=== PATIENT | female | born 1995 | race American Indian/Alaskan Native ===

== ENCOUNTER 2020-03-16 17:03 | Inpatient (IN) | payer OTHER ==
[2020-03-16] MEDS ORDERED: MINERAL OIL 30 ML ORAL LIQD PO PRN (18:18)
[2020-03-16] MEDS ORDERED: PROMETHAZINE 25 MG TAB PO PRN (18:18)
[2020-03-16] MEDS ORDERED: LOPERAMIDE 2 MG CAP PO PRN (18:18)
[2020-03-16] MEDS ORDERED: ONDANSETRON 4 MG/2 ML INJ IV PRN (18:18)
[2020-03-16] MEDS ORDERED: miSOPROStol 200 MCG TAB PR PRN (18:18)
[2020-03-16] MEDS ORDERED: TERBUTALINE 1 MG/1 ML INJ SUB-Q PRN (18:18)
[2020-03-16] MEDS ORDERED: ePHEDrine SULFATE 50 MG/1 ML INJ IV PRN (18:18)
[2020-03-16] MEDS ORDERED: NalbUPHINE 10 MG/1 ML INJ IV PRN (18:18)
[2020-03-16] MEDS ORDERED: CARBOPROST TROMETHAMINE 250 MCG/1 ML INJ IM PRN (18:18)
[2020-03-16] MEDS ORDERED: NALOXONE 0.4 MG/1 ML INJ IV PRN (18:18)
[2020-03-16] MEDS ORDERED: LIDOCAINE (2%) 20 MG/1 ML VIAL 20 ML MDV INFILTRATI ONE (18:18)
[2020-03-16] MEDS ORDERED: ACETAMINOPHEN 325 MG TAB PO PRN (18:18)
--- NOTE | 2020-03-16 18:25 | History and Physical Report ---
History of Present Illness Date of examination: 03/16/20 (IOL recommedned by [facility] d/t TN) Date of admission: 03/16/20 17:03 Chief complaint: I was sent from the high risk office for IOL d/t my blood pressures. History of present illness: Call from Other Clinic Caller: Dr Slater Call For: implementation manager Action Taken: Phone Call Completed Summary of Call: pt needs to be delivered Now dx with TN 38w1d Dopplers and BPP reassuring for IUGR dx will send consult report to office and L&D with recommendation. Bhavna and L&D notified Past History : 2 Term Births: 0 Premature Births: 0 Living Children: 0 Para: 0 Mult. Births: 0 Prev : 0 Prev. attempt? 0 Aborta: 1 Elect. Ab: 1 Spont. 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 Infection History Hx of STD: gonorrhea HIV Risk Eval: no Hepatitis B Risk Eval: low risk Personal hx. of genital herpes: no Rash, Viral, or Febrile illness since last LMP? no Varicella/Chicken Pox Status: Immunized TB Risk: no Genetic History Congenital Heart Defect: Mom: no Dad: no Maria L Disease: Mom: no Dad: no Thalassemia Mom: no Dad: no Neural Tube Defect Mom: no Dad: no Down's Syndrome Mom: no Dad: no Clayton-Sachs Mom: no Dad: no Sickle Cell Disease/Trait Mom: no Dad: no Hemophilia Mom: no Dad: no Muscular Dystrophy Mom: no Dad: no Cystic Fibrosis Mom: no Dad: no [place] Chorea Mom: no Dad: no Mental Retardation Mom: no Dad: no Fragile X Mom: no Dad: no Other Genetic/Chromosomal Disorder Mom: no Dad: no Child w/other defect Mom: no Dad: no Enviromental Exposures Enviromental Exposures Reviewed Xray Exposure: no Medication, drug, or alcohol use since LMP: no Chemical/Other Exposure: no Exposure to Cat Liter: no Hx of Parvovirus (Fifth Disease): no Occupational Exposure to Children: none Comments: [employer] Work[employer] Active Medications: None Current Allergies (reviewed today): No known allergies Past History Past Medical History: no pertinent history Past Surgical History: D&C (For an elective AB) Family/Genetic History: none Social history: no significant social history - Obstetrical History Expected Date of Delivery: 03/29/20 Actual Gestation: 38 Week(s) 1 Day(s) : 2 Para: 0 Hx # Term Pregnancies: 0 Number of Pregnancies: 0 Spontaneous Abortions: 0 Induced : 1 Number of Living Children: 0 Medications and Allergies Allergies Allergy/AdvReac Type Severity Reaction Status Date / Time No Known Allergies Allergy Verified 03/16/20 17:49 Home Medications Medication Instructions Recorded Confirmed Last Taken Type Plus Tablet 1 tab PO DAILY 03/16/20 03/16/20 03/16/20 12:00 History Active Meds: Active Medications Acetaminophen (Tylenol) 1,000 mg PO Q6H PRN PRN Reason: Pain, Mild (1-3) Carboprost Tromethamine (Hemabate) 250 mcg IM ONCE PRN PRN Reason: Uterine Bleeding Ephedrine Sulfate (Ephedrine Sulfate) 10 mg IV Q2M PRN PRN Reason: Hypotension Fentanyl (Sublimaze) 100 mcg IV Q2H PRN PRN Reason: Pain,Severe (7-10) LABOR PAIN Lactated Ringer's (Lactated Ringers) 1,000 mls @ 125 mls/hr IV DIRECT SAM Oxytocin/Sodium Chloride (Pitocin/Ns 30 Unit/500ml) 30 units in 500 mls @ 40 mls/hr IV TITR SAM; Protocol Lidocaine (Xylocaine 2%) 20 ml INFILTRATI ONCE ONE Stop: 03/16/20 18:19 Loperamide HCl (Imodium) 2 mg PO ONCE PRN PRN Reason: give with Hemabate Mineral Oil (Mineral Oil) 30 ml PO QHS PRN PRN Reason: Constipation Misoprostol (Cytotec) 800 mcg MS ONCE PRN PRN Reason: Uterine Bleeding Nalbuphine HCl (Nalbuphine) 10 mg IV Q2H PRN PRN Reason: Pain, Moderate (4-6) Naloxone HCl (Naloxone) 0.1 mg IV Q2MIN PRN PRN Reason: Res Rate </= 8 or 02 SAT < 92% Ondansetron HCl (Zofran) 4 mg IV Q8H PRN PRN Reason: Nausea And Vomiting Promethazine HCl (Phenergan) 25 mg PO Q6H PRN PRN Reason: Nausea And Vomiting Terbutaline Sulfate (Brethine) 0.25 mg SUB-Q ONCE PRN PRN Reason: Hyperstimulation/Hypertonicity Review of Systems All systems: negative - Vital Signs Vital signs: Vital Signs Pulse Pulse Ox 84 99 03/16/20 17:44 03/16/20 17:44 Temp Pulse Resp BP Pulse Ox 98.8 F 84 18 123/71 98 03/16/20 17:45 03/16/20 18:19 03/16/20 17:45 03/16/20 18:15 03/16/20 18:19 - Physical Exam Breasts: Positive: deferred Cardiovascular: Regular rate, Normal S1, Normal S2 Lungs: Positive: Normal air movement Abdomen: Positive: normal appearance, soft, normal bowel sounds. Negative: distention, tenderness Genitourinary (Female): Positive: normal external genitalia, normal perenium Vulva: both: normal Vagina: Positive: normal moisture. Negative: discharge Cervix: Negative: lesion, discharge Uterus: Positive: normal size, normal contour Adnexa: both: normal Anus/Rectum: Positive: normal perianal skin, heme negative. Negative: rectal mass, hemorrhoids Extremities: Positive: normal Deep Tendon Reflex Grade: Normal +2 (Pt denies GOVEA, blurred vision, spots before her eyes, chest pain, shortness of breath, and upper abdominal pain.) - Obstetrical FHR: category 1 Uterine Contraction Monitor Mode: External Cervical Dilatation: 0.5 (soft) Cervical Effacement Percentage: 50 station: -3 Uterine Contraction Pattern: Absent Results All other labs normal. GBS NEGATIVE HBsAg Screen Negative Negative *1 RPR Non Reactive Non Reactive *2 Rubella Antibodies, IgG 1.69 index Immune >0.99 *3 Non-immune <0.90 Equivocal 0.90 - 0.99 Immune >0.99 ABO Grouping A *4 Rh Factor Positive *5 Please note: Prior records for this patient's ABO / Rh type are not available for additional verification. Antibody Screen Negative Negative *6 WBC [H] 10.9 x10E3/uL 3.4-10.8 *7 RBC 4.30 x10E6/uL 3.77-5.28 *8 Hemoglobin 12.0 g/dL 11.1-15.9 *9 Hematocrit 37.3 % 34.0-46.6 *10 MCV 87 fL 79-97 *11 MCH 27.9 pg 26.6-33.0 *12 MCHC 32.2 g/dL 31.5-35.7 *13 RDW [H] 15.5 % 11.7-15.4 *14 Platelets 254 x10E3/uL 150-450 *15 Neutrophils 69 % Not Estab. *16 Lymphs 23 % Not Estab. *17 Monocytes 7 % Not Estab. *18 Eos 1 % Not Estab. *19 Basos 0 % Not Estab. *20 ! Immature Cells <No Reported Value> *21 Neutrophils (Absolute) [H] 7.5 x10E3/uL 1.4-7.0 *22 Lymphs (Absolute) 2.4 x10E3/uL 0.7-3.1 *23 Monocytes(Absolute) 0.7 x10E3/uL 0.1-0.9 *24 Eos (Absolute) 0.1 x10E3/uL 0.0-0.4 *25 Baso (Absolute) 0.0 x10E3/uL 0.0-0.2 *26 ! Immature Granulocytes 0 % Not Estab. *27 ! Immature Grans (Abs) 0.0 x10E3/uL 0.0-0.1 *28 ! NRBC <No Reported Value> *29 Hematology Comments: <No Reported Value> *30 Tests: (2) AFP Tetra ([id number]) ! Results Report *31 ! Test Results: *Screen Negative* *32 ! Gest. Age on Collection Date 18.4 WEEKS *33 ! Gestat. Age Based On OLI *34 03/29/2020 ! M[age] OLI 24.6 yr *35 ! Race Black *36 ! Weight 154 lbs *37 ! Insulin Dep Diabetes No *38 ! Multiple Gestation No *39 ! AFP Value 45.6 ng/mL *40 ! AFP MoM 0.94 *41 ! hCG Value 79521 mIU/mL *42 ! hCG MoM 0.62 *43 ! uE3 Value 0.95 ng/mL *44 ! uE3 MoM 0.63 *45 ! PAVITHRA Value 126.61 pg/mL *46 ! PAVITHRA MoM 0.76 *47 ! OSBR Risk 1 [place] [address] *48 ! DSR (Second Trimester) 1 IN 7050 *49 ! DSR (By Age) 1 IN 1114 *50 ! T18 Risk Not increased *51 ! T18 (By Age) 1:4339 *52 ! Interpretation NL42 *53 Interpretation: Screen Negative This result is screen negative for OSB, Down Syndrome and Trisomy 18. The AFP MoM and patient specific risks calculated are based on the gestational age and the clinical information provided. This test can identify up to 80% of open neural tube defects. Closed neural tube defects and some open defects may not be detected by this test. The combination of maternal age, AFP, hCG, uE3, and PAVITHRA identifies 75-80% of Down Syndrome. The combination of maternal age, AFP, hCG and uE3 identifies 60% of Trisomy 18 pregnancies. The [place] [employer] recommends amniocentesis be offered to women age 35 and older. Recalculations are not recommended when gestational dating by LMP and ultrasound are within 10 days. ! Comments: [facility] *54 Iqra Swanson, Ph.D., [facility] Principal Genetics Pottery [employer]per References: Available Upon Request. Multiples Of Median Cutoffs Abbreviation Definitions For AFP Elevations IDD- Insulin Dep Diabetes Heredia 2.5 Black 2.8 OSBR- Open Spina Bifida IDD 2.0 Twins 4.5 Risk DSR Cutoff 1:270 DSR- Down Syndrome Risk T18 Cutoff 1:100 T18- Trisomy 18 Down Syndrome and Trisomy 18 screening are considered Investigational For further inquiries contact [facility] at [phone]. Tests: (3) HB Solu + Rflx [facility] ([id number]) Hemoglobin (Hgb) Solubility Negative Negative *55 Tests: (4) HIV Ag/Ab with Reflex ([id number]) HIV Screen 4th Generation wRfx Non Reactive Non Reactive *56 Tests: (5) HCV Ab w/Rflx to Verification ([id number]) ! HCV Ab <0.1 s/co ratio 0.0-0.9 *57 Tests: (6) Comment: ([id number]) ! Comment: [facility] *58 Non reactive HCV antibody screen is consistent with no HCV infection, unless recent infection is suspected or other evidence exists to indicate HCV infection. Assessment and Plan A: 24 y.o. @ 38.1 wks, [facility] Cervical exam: cl/th/hi. P: Admit to L&D for IOL. Pre eclampsia labs ordered. Monitor blood pressures per protocol. Cervidil for cervical ripening. - Patient Problems (1) IUGR (intrauterine growth restriction) affecting care of mother Onset Date: ~03/16/20 Current Visit: Yes Status: Acute Qualifiers: Fetus number: single or unspecified fetus Trimester: third trimester Qualified Code(s): O36.5930 - Maternal care for other known or suspected poor growth, third trimester, not applicable or unspecified Plan to address problem: EFM to monitor status. (2) Gestational hypertension Onset Date: ~03/16/20 Current Visit: Yes Status: Acute Qualifiers: Trimester: third trimester Qualified Code(s): O13.3 - Gestational [-induced] hypertension without significant proteinuria, third trimester Plan to address problem: Admit to labor and delivery for IOL d/t gHTN. Pre eclampsia labs to be drawn. Monitor blood pressures per protocol. (3) with 38 completed weeks gestation Onset Date: ~03/15/20 Current Visit: Yes Status: Acute Plan to address problem: EFM to monitor status.
[2020-03-16] MEDS ORDERED: OXYTOCIN DRIP 30 UNITS/500 ML BAG IV SCH (19:00)
[2020-03-16 19:33] LABS: Bacteria,Urine 1+ /HPF (Negative); Bilirubin,Urine NEG (Negative); Blood,Urine NEG (Negative); Color,Urine Yellow (Yellow); Hyaline Casts,Urine 1 /LPF; Mucus,Urine 1+ /HPF; Protein,Urine <15 mg/dL mg/dL (Negative); Urobilinogen,Urine < 2.0 mg/dL (<2.0)
[2020-03-16] MEDS ORDERED: DINOPROSTONE 10 MG VAG SUPP VG ONE (20:11)
[2020-03-16 20:53] LABS: Hematocrit 32.9 % (30.3-42.9); Hemoglobin 10.7 gm/dl (10.1-14.3); Mean Corpuscular HGB Conc 33 % (30-34); Mean Corpuscular Volume 87 fl (79-97); Platelet Count 171 K/mm3 (140-440); Red Blood Count 3.76 M/mm3 (3.65-5.03); Red Cell Distribution Width 14.6 % (13.2-15.2)
[2020-03-16 21:07] LABS: Alanine Aminotransferase 42 units/L (7-56)
[2020-03-17] MEDS: fentaNYL 100 MCG/2 ML INJ IV PRN (03:07)
--- NOTE | 2020-03-17 06:08 | Progress Note ---
Assessment and Plan Pt resting States ctx are painful. CTX q2,50,mod SVE 1,60,-2 Cervidil removed. AM care and diet. Will start pitocin per protocol @ 0900. All concerns addressed Subjective - Subjective Date of service: 03/17/20 (pt states she is hungry) Principal diagnosis: IUP@ 38w2d IUGR GHTN IOL Patient reports: movement normal Objective - Vital Signs Vital Signs: Vital Signs - 12hr 03/16/20 03/16/20 03/16/20 18:09 18:14 18:15 Temperature Pulse Rate 84 84 84 Respiratory Rate Blood Pressure 123/71 Blood Pressure [Left] O2 Sat by Pulse 99 99 Oximetry 03/16/20 03/16/20 03/16/20 18:19 18:24 18:29 Temperature Pulse Rate 84 84 83 Respiratory Rate Blood Pressure Blood Pressure [Left] O2 Sat by Pulse 98 99 99 Oximetry 03/16/20 03/16/20 03/16/20 18:30 18:34 18:39 Temperature Pulse Rate 80 95 H 81 Respiratory Rate Blood Pressure 102/58 Blood Pressure [Left] O2 Sat by Pulse 98 99 Oximetry 03/16/20 03/16/20 03/16/20 18:44 18:45 18:49 Temperature Pulse Rate 85 81 84 Respiratory Rate Blood Pressure 121/68 Blood Pressure [Left] O2 Sat by Pulse 98 97 Oximetry 03/16/20 03/16/20 03/16/20 18:54 18:59 19:01 Temperature Pulse Rate 83 80 78 Respiratory Rate Blood Pressure 126/75 Blood Pressure [Left] O2 Sat by Pulse 98 99 Oximetry 03/16/20 03/16/20 03/16/20 19:04 19:09 19:14 Temperature Pulse Rate 82 81 89 Respiratory Rate Blood Pressure Blood Pressure [Left] O2 Sat by Pulse 98 99 99 Oximetry 03/16/20 03/16/20 03/16/20 19:16 19:19 19:23 Temperature 98.7 F Pulse Rate 78 86 83 Respiratory 18 Rate Blood Pressure 123/75 Blood Pressure 125/76 [Left] O2 Sat by Pulse 98 98 Oximetry 03/16/20 03/16/20 03/16/20 19:24 19:29 19:31 Temperature Pulse Rate 87 81 83 Respiratory Rate Blood Pressure 125/76 124/74 Blood Pressure [Left] O2 Sat by Pulse 98 98 Oximetry 03/16/20 03/16/20 03/16/20 19:34 19:39 19:44 Temperature Pulse Rate 89 79 87 Respiratory Rate Blood Pressure Blood Pressure [Left] O2 Sat by Pulse 98 99 98 Oximetry 03/16/20 03/16/20 03/16/20 19:45 19:49 19:54 Temperature Pulse Rate 94 H 94 H 85 Respiratory Rate Blood Pressure 134/84 Blood Pressure [Left] O2 Sat by Pulse 99 99 Oximetry 03/16/20 03/16/20 03/16/20 19:59 20:00 20:06 Temperature Pulse Rate 89 88 90 Respiratory Rate Blood Pressure 126/73 Blood Pressure [Left] O2 Sat by Pulse 98 97 Oximetry 03/16/20 03/16/20 03/16/20 20:11 20:15 20:16 Temperature Pulse Rate 81 88 81 Respiratory Rate Blood Pressure 123/78 Blood Pressure [Left] O2 Sat by Pulse 98 98 Oximetry 03/16/20 03/16/20 03/16/20 20:21 20:26 20:30 Temperature Pulse Rate 81 98 H 90 Respiratory Rate Blood Pressure 103/55 Blood Pressure [Left] O2 Sat by Pulse 99 98 Oximetry 03/16/20 03/16/20 03/16/20 20:31 20:36 20:41 Temperature Pulse Rate 91 H 92 H 92 H Respiratory Rate Blood Pressure Blood Pressure [Left] O2 Sat by Pulse 98 98 98 Oximetry 03/16/20 03/16/20 03/16/20 20:45 20:46 20:51 Temperature Pulse Rate 84 88 98 H Respiratory Rate Blood Pressure 126/72 Blood Pressure [Left] O2 Sat by Pulse 99 98 Oximetry 03/16/20 03/16/20 03/16/20 20:56 21:00 21:01 Temperature Pulse Rate 100 H 93 H 92 H Respiratory Rate Blood Pressure 125/74 Blood Pressure [Left] O2 Sat by Pulse 98 98 Oximetry 03/16/20 03/16/20 03/16/20 21:06 21:11 21:15 Temperature Pulse Rate 89 92 H 92 H Respiratory Rate Blood Pressure 124/70 Blood Pressure [Left] O2 Sat by Pulse 98 98 Oximetry 03/16/20 03/16/20 03/16/20 21:16 21:21 21:26 Temperature Pulse Rate 97 H 96 H 93 H Respiratory Rate Blood Pressure Blood Pressure [Left] O2 Sat by Pulse 97 98 99 Oximetry 03/16/20 03/16/20 03/16/20 21:30 21:31 21:36 Temperature Pulse Rate 89 92 H 97 H Respiratory Rate Blood Pressure 126/74 Blood Pressure [Left] O2 Sat by Pulse 98 99 Oximetry 03/16/20 03/16/20 03/16/20 21:41 21:45 21:46 Temperature Pulse Rate 85 86 86 Respiratory Rate Blood Pressure 123/66 Blood Pressure [Left] O2 Sat by Pulse 99 98 Oximetry 03/16/20 03/16/20 03/16/20 21:51 21:56 22:00 Temperature Pulse Rate 84 85 88 Respiratory Rate Blood Pressure 124/71 Blood Pressure [Left] O2 Sat by Pulse 98 99 Oximetry 03/16/20 03/16/20 03/16/20 22:01 22:06 22:11 Temperature Pulse Rate 85 84 94 H Respiratory Rate Blood Pressure Blood Pressure [Left] O2 Sat by Pulse 98 97 98 Oximetry 03/16/20 03/16/20 03/16/20 22:15 22:16 22:21 Temperature Pulse Rate 88 85 95 H Respiratory Rate Blood Pressure 128/75 Blood Pressure [Left] O2 Sat by Pulse 99 99 Oximetry 03/16/20 03/16/20 03/16/20 22:26 22:30 22:31 Temperature Pulse Rate 86 82 83 Respiratory Rate Blood Pressure 128/76 Blood Pressure [Left] O2 Sat by Pulse 99 99 Oximetry 03/16/20 03/16/20 03/16/20 22:36 22:41 22:46 Temperature Pulse Rate 88 89 83 Respiratory Rate Blood Pressure 125/72 Blood Pressure [Left] O2 Sat by Pulse 97 99 98 Oximetry 03/16/20 03/16/20 03/16/20 22:51 22:56 23:00 Temperature Pulse Rate 85 89 80 Respiratory Rate Blood Pressure 124/75 Blood Pressure [Left] O2 Sat by Pulse 98 98 Oximetry 03/16/20 03/16/20 03/16/20 23:01 23:06 23:12 Temperature Pulse Rate 88 89 82 Respiratory Rate Blood Pressure Blood Pressure [Left] O2 Sat by Pulse 99 99 99 Oximetry 03/16/20 03/16/20 03/16/20 23:16 23:17 23:22 Temperature Pulse Rate 83 82 91 H Respiratory Rate Blood Pressure 128/78 Blood Pressure [Left] O2 Sat by Pulse 98 98 Oximetry 03/16/20 03/16/20 03/16/20 23:27 23:30 23:32 Temperature Pulse Rate 76 77 80 Respiratory Rate Blood Pressure 118/58 Blood Pressure [Left] O2 Sat by Pulse 98 98 Oximetry 03/16/20 03/16/20 03/16/20 23:37 23:42 23:45 Temperature Pulse Rate 81 81 81 Respiratory Rate Blood Pressure 116/75 Blood Pressure [Left] O2 Sat by Pulse 97 98 Oximetry 03/16/20 03/16/20 03/16/20 23:47 23:52 23:57 Temperature Pulse Rate 79 81 83 Respiratory Rate Blood Pressure Blood Pressure [Left] O2 Sat by Pulse 97 97 97 Oximetry 03/17/20 03/17/20 03/17/20 00:00 00:01 00:02 Temperature Pulse Rate 78 81 83 Respiratory Rate Blood Pressure 114/62 123/60 Blood Pressure [Left] O2 Sat by Pulse 98 Oximetry 03/17/20 03/17/20 03/17/20 00:07 00:12 00:16 Temperature Pulse Rate 81 84 80 Respiratory Rate Blood Pressure 124/65 Blood Pressure [Left] O2 Sat by Pulse 97 97 Oximetry 03/17/20 03/17/20 03/17/20 00:17 00:22 00:27 Temperature Pulse Rate 79 82 81 Respiratory Rate Blood Pressure Blood Pressure [Left] O2 Sat by Pulse 97 99 98 Oximetry 03/17/20 03/17/20 03/17/20 00:31 00:32 00:37 Temperature Pulse Rate 77 79 78 Respiratory Rate Blood Pressure 113/66 Blood Pressure [Left] O2 Sat by Pulse 98 97 Oximetry 03/17/20 03/17/20 03/17/20 00:42 00:45 00:47 Temperature Pulse Rate 84 77 79 Respiratory Rate Blood Pressure 111/63 Blood Pressure [Left] O2 Sat by Pulse 97 97 Oximetry 03/17/20 03/17/20 03/17/20 00:52 00:57 01:00 Temperature Pulse Rate 83 77 76 Respiratory Rate Blood Pressure 104/57 Blood Pressure [Left] O2 Sat by Pulse 98 98 Oximetry 03/17/20 03/17/20 03/17/20 01:02 01:07 01:12 Temperature Pulse Rate 77 77 77 Respiratory Rate Blood Pressure Blood Pressure [Left] O2 Sat by Pulse 98 98 97 Oximetry 03/17/20 03/17/20 03/17/20 01:15 01:17 01:22 Temperature Pulse Rate 75 78 82 Respiratory Rate Blood Pressure 103/56 Blood Pressure [Left] O2 Sat by Pulse 97 96 Oximetry 03/17/20 03/17/20 03/17/20 01:27 01:30 01:32 Temperature Pulse Rate 79 78 82 Respiratory Rate Blood Pressure 95/53 Blood Pressure [Left] O2 Sat by Pulse 96 97 Oximetry 03/17/20 03/17/20 03/17/20 01:37 01:42 01:45 Temperature Pulse Rate 79 83 78 Respiratory Rate Blood Pressure 101/57 Blood Pressure [Left] O2 Sat by Pulse 97 96 Oximetry 03/17/20 03/17/20 03/17/20 01:47 01:52 01:57 Temperature Pulse Rate 91 H 80 82 Respiratory Rate Blood Pressure Blood Pressure [Left] O2 Sat by Pulse 98 97 97 Oximetry 03/17/20 03/17/20 03/17/20 02:01 02:02 02:07 Temperature Pulse Rate 81 76 87 Respiratory Rate Blood Pressure 105/51 Blood Pressure [Left] O2 Sat by Pulse 93 97 96 Oximetry 03/17/20 03/17/20 03/17/20 02:12 02:17 02:22 Temperature Pulse Rate 82 75 77 Respiratory Rate Blood Pressure 113/55 Blood Pressure [Left] O2 Sat by Pulse 98 96 97 Oximetry 03/17/20 03/17/20 03/17/20 02:29 02:30 02:34 Temperature Pulse Rate 82 76 79 Respiratory Rate Blood Pressure 124/60 Blood Pressure [Left] O2 Sat by Pulse 99 97 Oximetry 03/17/20 03/17/20 03/17/20 02:39 02:40 02:44 Temperature Pulse Rate 74 95 H 76 Respiratory Rate Blood Pressure Blood Pressure [Left] O2 Sat by Pulse 98 0 L 98 Oximetry 03/17/20 03/17/20 03/17/20 02:45 02:49 02:54 Temperature Pulse Rate 75 85 78 Respiratory Rate Blood Pressure 123/61 Blood Pressure [Left] O2 Sat by Pulse 97 97 Oximetry 03/17/20 03/17/20 03/17/20 02:59 03:00 03:04 Temperature Pulse Rate 86 75 82 Respiratory Rate Blood Pressure 121/74 Blood Pressure [Left] O2 Sat by Pulse 98 96 Oximetry 03/17/20 03/17/20 03/17/20 03:07 03:09 03:12 Temperature Pulse Rate 70 82 Respiratory 18 Rate Blood Pressure Blood Pressure [Left] O2 Sat by Pulse 97 94 Oximetry 03/17/20 03/17/20 03/17/20 03:14 03:16 03:19 Temperature Pulse Rate 84 82 81 Respiratory Rate Blood Pressure 121/70 Blood Pressure [Left] O2 Sat by Pulse 95 95 Oximetry 03/17/20 03/17/20 03/17/20 03:24 03:29 03:31 Temperature Pulse Rate 79 76 78 Respiratory Rate Blood Pressure 112/58 Blood Pressure [Left] O2 Sat by Pulse 95 96 94 Oximetry 03/17/20 03/17/20 03/17/20 03:34 03:39 03:44 Temperature Pulse Rate 76 79 80 Respiratory Rate Blood Pressure Blood Pressure [Left] O2 Sat by Pulse 95 96 94 Oximetry 03/17/20 03/17/20 03/17/20 03:45 03:49 03:54 Temperature Pulse Rate 78 76 76 Respiratory Rate Blood Pressure 110/58 Blood Pressure [Left] O2 Sat by Pulse 94 95 95 Oximetry 03/17/20 03/17/20 03/17/20 03:58 03:59 04:00 Temperature Pulse Rate 77 78 70 Respiratory Rate Blood Pressure 116/55 Blood Pressure [Left] O2 Sat by Pulse 94 96 Oximetry 03/17/20 03/17/20 03/17/20 04:04 04:05 04:09 Temperature Pulse Rate 78 77 77 Respiratory Rate Blood Pressure Blood Pressure [Left] O2 Sat by Pulse 95 94 96 Oximetry 03/17/20 03/17/20 03/17/20 04:14 04:15 04:19 Temperature Pulse Rate 74 76 77 Respiratory Rate Blood Pressure 118/62 Blood Pressure [Left] O2 Sat by Pulse 96 94 96 Oximetry 03/17/20 03/17/20 03/17/20 04:20 04:24 04:29 Temperature Pulse Rate 74 76 74 Respiratory Rate Blood Pressure Blood Pressure [Left] O2 Sat by Pulse 94 94 99 Oximetry 03/17/20 03/17/20 03/17/20 04:30 04:34 04:39 Temperature Pulse Rate 81 75 78 Respiratory Rate Blood Pressure 120/68 Blood Pressure [Left] O2 Sat by Pulse 97 97 Oximetry 03/17/20 03/17/20 03/17/20 04:44 04:46 04:49 Temperature Pulse Rate 76 74 78 Respiratory Rate Blood Pressure 119/72 Blood Pressure [Left] O2 Sat by Pulse 97 97 Oximetry 03/17/20 03/17/20 03/17/20 04:54 04:59 05:00 Temperature Pulse Rate 81 73 74 Respiratory Rate Blood Pressure 121/77 Blood Pressure [Left] O2 Sat by Pulse 97 97 Oximetry 03/17/20 03/17/20 03/17/20 05:04 05:09 05:14 Temperature Pulse Rate 90 76 79 Respiratory Rate Blood Pressure Blood Pressure [Left] O2 Sat by Pulse 96 98 98 Oximetry 03/17/20 03/17/20 03/17/20 05:15 05:19 05:24 Temperature Pulse Rate 76 81 74 Respiratory Rate Blood Pressure 101/60 Blood Pressure [Left] O2 Sat by Pulse 98 98 Oximetry 03/17/20 03/17/20 03/17/20 05:29 05:30 05:34 Temperature Pulse Rate 77 77 87 Respiratory Rate Blood Pressure 124/77 Blood Pressure [Left] O2 Sat by Pulse 98 98 Oximetry 03/17/20 03/17/20 03/17/20 05:39 05:44 05:46 Temperature Pulse Rate 78 73 75 Respiratory Rate Blood Pressure 107/60 Blood Pressure [Left] O2 Sat by Pulse 98 97 Oximetry 03/17/20 03/17/20 03/17/20 05:49 05:54 05:59 Temperature Pulse Rate 74 77 79 Respiratory Rate Blood Pressure Blood Pressure [Left] O2 Sat by Pulse 97 97 97 Oximetry 03/17/20 06:00 Temperature Pulse Rate 74 Respiratory Rate Blood Pressure 105/55 Blood Pressure [Left] O2 Sat by Pulse Oximetry - Exam Breasts: deferred Cardiovascular: Regular rate Lungs: Normal air movement Abdomen: Present: normal appearance, soft. Absent: distention, tenderness Uterus: Present: normal FHR: auscultation normal, category 1 Uterine Contraction Monitor Mode: External Cervical Dilatation: 1 (cervidil removed) Cervical Effacement Percentage: 60 station: -2 Uterine Contraction Pattern: Regular Uterine Tone Measurement Phase: Resting Uterine Contraction Intensity: Moderate Extremities: normal Deep Tendon Reflex Grade: Normal +2 - Labs Labs: Abnormal Labs 03/16/20 03/16/20 20:35 20:35 WBC 14.2 H Lactate Dehydrogenase 211 H Laboratory Results - last 24 hr 03/16/20 03/16/20 03/16/20 18:24 20:35 20:35 WBC 14.2 H RBC 3.76 Hgb 10.7 Hct 32.9 MCV 87 MCH 29 MCHC 33 RDW 14.6 Plt Count 171 Creatinine Estimated GFR Uric Acid AST ALT Lactate Dehydrogenase Urine Color Yellow Urine Turbidity Cloudy Urine pH 7.0 Ur Specific [place] 1.017 Urine Protein <15 mg/dl Urine Glucose (UA) Neg Urine Ketones Neg Urine Blood Neg Urine Nitrite Neg Urine Bilirubin Neg Urine Urobilinogen < 2.0 Ur Leukocyte Esterase Neg Urine WBC (Auto) 6.0 Urine RBC (Auto) 3.0 U Epithel Cells (Auto) 13.0 Urine Bacteria (Auto) 1+ Hyaline Casts 1 Urine Mucus 1+ Urine Yeast (Bud[place]) 2+ Syphilis IgG Antibody Nonreactive Blood Type Antibody Screen 03/16/20 03/16/20 20:35 20:35 WBC RBC Hgb Hct MCV MCH MCHC RDW Plt Count Creatinine 0.7 Estimated GFR > 60 Uric Acid 4.0 AST 34 ALT 42 Lactate Dehydrogenase 211 H Urine Color Urine Turbidity Urine pH Ur Specific [place] Urine Protein Urine Glucose (UA) Urine Ketones Urine Blood Urine Nitrite Urine Bilirubin Urine Urobilinogen Ur Leukocyte Esterase Urine WBC (Auto) Urine RBC (Auto) U Epithel Cells (Auto) Urine Bacteria (Auto) Hyaline Casts Urine Mucus Urine Yeast (Budding) Syphilis IgG Antibody Blood Type A POSITIVE Antibody Screen Negative
[2020-03-17] MEDS: LACTATED RINGERS 1,000 ML IV SCH ×2 (09:40→20:34)
[2020-03-17] MEDS: OXYTOCIN DRIP 30 UNITS/500 ML BAG IV SCH ×5 (09:40→14:34)
--- NOTE | 2020-03-17 14:41 | Event Note ---
Date: 03/17/20 (resting ) Pit @ 16mu CTX q1-3, 45, mod SVE no chg from this AM Will stop pit @ 1700. Allow PM care. Report to Dr Carcamo Pt aware IOL make take 2-3 days. All questions addressed
[2020-03-17] MEDS ORDERED: DINOPROSTONE 10 MG VAG SUPP VG ONE (20:13)
--- NOTE | 2020-03-17 20:17 | Event Note ---
Date: 03/17/20 Plan of care was d/w pt. All questions were addressed and answered.
[2020-03-18] MEDS: fentaNYL 100 MCG/2 ML INJ IV PRN ×4 (00:16→10:12)
[2020-03-18] MEDS: LACTATED RINGERS 1,000 ML IV SCH ×2 (04:50→12:59)
--- NOTE | 2020-03-18 08:08 | Progress Note ---
Assessment and Plan cervidil removed, SVE w/o significant change. plan discussed - allow meal and AM care, will start pitocin around 0900. All questions addressed. - Patient Problems (1) Gestational hypertension Onset Date: ~03/16/20 Current Visit: Yes Status: Acute Qualifiers: Trimester: third trimester Qualified Code(s): O13.3 - Gestational [-induced] hypertension without significant proteinuria, third trimester Plan to address problem: monitor b/p's continue IOL (2) IUGR (intrauterine growth restriction) affecting care of mother Onset Date: ~03/16/20 Current Visit: Yes Status: Acute Qualifiers: Fetus number: single or unspecified fetus Trimester: third trimester Qualified Code(s): O36.5930 - Maternal care for other known or suspected poor growth, third trimester, not applicable or unspecified Plan to address problem: Cont efm (3) with 38 completed weeks gestation Onset Date: ~03/15/20 Current Visit: Yes Status: Acute Subjective - Subjective Date of service: 03/18/20 Principal diagnosis: IUP@ 38w3d IUGR GHTN IOL Patient reports: movement normal, no new complaints, no loss of fluid, no vaginal bleeding Objective - Vital Signs Vital Signs: Vital Signs - 12hr 03/17/20 03/17/20 03/17/20 20:16 20:21 20:26 Temperature Pulse Rate 83 82 73 Respiratory Rate Blood Pressure O2 Sat by Pulse 98 98 97 Oximetry 03/17/20 03/17/20 03/17/20 20:27 20:30 20:31 Temperature Pulse Rate 73 89 84 Respiratory Rate Blood Pressure 126/82 O2 Sat by Pulse 78 L 99 Oximetry 03/17/20 03/17/20 03/17/20 20:36 20:41 20:45 Temperature Pulse Rate 78 85 75 Respiratory Rate Blood Pressure 121/68 O2 Sat by Pulse 99 98 Oximetry 03/17/20 03/17/20 03/17/20 20:46 20:51 20:56 Temperature Pulse Rate 83 78 81 Respiratory Rate Blood Pressure O2 Sat by Pulse 100 99 98 Oximetry 03/17/20 03/17/20 03/17/20 21:00 21:01 21:06 Temperature Pulse Rate 78 83 82 Respiratory Rate Blood Pressure 121/72 O2 Sat by Pulse 99 98 Oximetry 03/17/20 03/17/20 03/17/20 21:11 21:15 21:16 Temperature Pulse Rate 82 81 92 H Respiratory Rate Blood Pressure 123/74 O2 Sat by Pulse 98 98 Oximetry 03/17/20 03/17/20 03/17/20 21:21 21:26 21:30 Temperature Pulse Rate 89 81 78 Respiratory Rate Blood Pressure 117/69 O2 Sat by Pulse 98 98 Oximetry 03/17/20 03/17/20 03/17/20 21:31 21:36 21:41 Temperature Pulse Rate 81 79 83 Respiratory Rate Blood Pressure O2 Sat by Pulse 97 97 98 Oximetry 03/17/20 03/17/20 03/17/20 21:45 21:46 21:51 Temperature Pulse Rate 77 82 85 Respiratory Rate Blood Pressure 122/70 O2 Sat by Pulse 96 99 Oximetry 03/17/20 03/17/20 03/17/20 21:56 22:01 22:06 Temperature Pulse Rate 86 80 86 Respiratory Rate Blood Pressure 124/71 O2 Sat by Pulse 98 98 98 Oximetry 03/17/20 03/17/20 03/17/20 22:11 22:15 22:16 Temperature Pulse Rate 76 83 83 Respiratory Rate Blood Pressure 127/74 O2 Sat by Pulse 97 98 Oximetry 03/17/20 03/17/20 03/17/20 22:21 22:26 22:35 Temperature Pulse Rate 80 83 79 Respiratory Rate Blood Pressure O2 Sat by Pulse 98 96 98 Oximetry 03/17/20 03/17/20 03/17/20 22:40 22:45 22:50 Temperature Pulse Rate 82 84 83 Respiratory Rate Blood Pressure 126/79 O2 Sat by Pulse 97 97 98 Oximetry 03/17/20 03/17/20 03/17/20 22:55 23:00 23:05 Temperature Pulse Rate 88 81 82 Respiratory Rate Blood Pressure 122/71 O2 Sat by Pulse 98 99 98 Oximetry 03/17/20 03/17/20 03/17/20 23:10 23:15 23:20 Temperature Pulse Rate 77 83 84 Respiratory Rate Blood Pressure 121/68 O2 Sat by Pulse 97 97 99 Oximetry 03/17/20 03/17/20 03/17/20 23:25 23:30 23:35 Temperature Pulse Rate 76 80 76 Respiratory Rate Blood Pressure 128/82 O2 Sat by Pulse 98 98 98 Oximetry 03/17/20 03/17/20 03/17/20 23:40 23:45 23:50 Temperature Pulse Rate 77 75 75 Respiratory Rate Blood Pressure 126/83 O2 Sat by Pulse 98 98 97 Oximetry 03/18/20 03/18/20 03/18/20 00:02 00:07 00:12 Temperature Pulse Rate 78 75 76 Respiratory Rate Blood Pressure O2 Sat by Pulse 99 98 98 Oximetry 03/18/20 03/18/20 03/18/20 00:15 00:17 00:22 Temperature 98.3 F Pulse Rate 76 17 L 76 Respiratory Rate Blood Pressure 120/72 O2 Sat by Pulse 94 97 98 Oximetry 03/18/20 03/18/20 03/18/20 00:27 00:32 00:37 Temperature Pulse Rate 80 76 73 Respiratory Rate Blood Pressure O2 Sat by Pulse 99 97 97 Oximetry 03/18/20 03/18/20 03/18/20 00:42 00:47 00:52 Temperature Pulse Rate 75 75 69 Respiratory Rate Blood Pressure O2 Sat by Pulse 97 97 98 Oximetry 03/18/20 03/18/20 03/18/20 00:57 01:02 01:07 Temperature Pulse Rate 77 74 86 Respiratory Rate Blood Pressure O2 Sat by Pulse 97 98 98 Oximetry 03/18/20 03/18/20 03/18/20 01:12 01:15 01:17 Temperature Pulse Rate 74 76 74 Respiratory Rate Blood Pressure 114/71 O2 Sat by Pulse 98 98 Oximetry 03/18/20 03/18/20 03/18/20 01:22 01:27 01:32 Temperature Pulse Rate 75 80 75 Respiratory Rate Blood Pressure O2 Sat by Pulse 98 98 98 Oximetry 03/18/20 03/18/20 03/18/20 01:37 01:42 01:47 Temperature Pulse Rate 77 79 77 Respiratory Rate Blood Pressure O2 Sat by Pulse 97 97 98 Oximetry 03/18/20 03/18/20 03/18/20 01:52 01:57 02:02 Temperature Pulse Rate 76 80 74 Respiratory Rate Blood Pressure O2 Sat by Pulse 97 99 97 Oximetry 03/18/20 03/18/20 03/18/20 02:07 02:12 02:15 Temperature Pulse Rate 76 81 77 Respiratory Rate Blood Pressure 118/75 O2 Sat by Pulse 97 96 Oximetry 03/18/20 03/18/20 03/18/20 02:17 02:22 02:27 Temperature Pulse Rate 80 82 78 Respiratory Rate Blood Pressure O2 Sat by Pulse 95 96 95 Oximetry 03/18/20 03/18/20 03/18/20 02:32 02:37 02:42 Temperature Pulse Rate 81 77 79 Respiratory Rate Blood Pressure O2 Sat by Pulse 95 95 95 Oximetry 03/18/20 03/18/20 03/18/20 02:47 02:52 02:57 Temperature Pulse Rate 77 77 81 Respiratory Rate Blood Pressure O2 Sat by Pulse 95 96 96 Oximetry 03/18/20 03/18/20 03/18/20 03:02 03:07 03:12 Temperature Pulse Rate 78 75 78 Respiratory Rate Blood Pressure O2 Sat by Pulse 96 96 95 Oximetry 03/18/20 03/18/20 03/18/20 03:15 03:17 03:22 Temperature Pulse Rate 78 84 82 Respiratory Rate Blood Pressure 114/66 O2 Sat by Pulse 96 95 Oximetry 03/18/20 03/18/20 03/18/20 03:27 03:32 03:37 Temperature Pulse Rate 84 84 84 Respiratory Rate Blood Pressure O2 Sat by Pulse 95 97 96 Oximetry 03/18/20 03/18/20 03/18/20 03:42 03:47 03:52 Temperature Pulse Rate 89 84 85 Respiratory Rate Blood Pressure O2 Sat by Pulse 97 96 96 Oximetry 03/18/20 03/18/20 03/18/20 03:57 04:02 04:12 Temperature Pulse Rate 82 82 83 Respiratory Rate Blood Pressure O2 Sat by Pulse 96 96 100 Oximetry 03/18/20 03/18/20 03/18/20 04:15 04:17 04:22 Temperature Pulse Rate 75 84 78 Respiratory Rate Blood Pressure 129/73 O2 Sat by Pulse 98 98 Oximetry 03/18/20 03/18/20 03/18/20 04:27 04:32 04:37 Temperature Pulse Rate 79 88 79 Respiratory Rate Blood Pressure O2 Sat by Pulse 98 98 99 Oximetry 03/18/20 03/18/20 03/18/20 04:42 04:47 04:50 Temperature 98.3 F Pulse Rate 81 87 Respiratory 18 Rate Blood Pressure O2 Sat by Pulse 99 97 Oximetry 03/18/20 03/18/20 03/18/20 04:52 04:57 05:02 Temperature Pulse Rate 78 80 97 H Respiratory Rate Blood Pressure O2 Sat by Pulse 96 97 98 Oximetry 03/18/20 03/18/20 03/18/20 05:07 05:12 05:15 Temperature Pulse Rate 88 87 72 Respiratory Rate Blood Pressure 116/61 O2 Sat by Pulse 97 97 Oximetry 03/18/20 03/18/20 03/18/20 05:17 05:22 05:27 Temperature Pulse Rate 81 73 80 Respiratory Rate Blood Pressure O2 Sat by Pulse 95 96 96 Oximetry 03/18/20 03/18/20 03/18/20 05:32 05:37 05:42 Temperature Pulse Rate 84 74 75 Respiratory Rate Blood Pressure O2 Sat by Pulse 96 97 97 Oximetry 03/18/20 03/18/20 03/18/20 05:47 05:52 05:57 Temperature Pulse Rate 79 78 76 Respiratory Rate Blood Pressure O2 Sat by Pulse 97 96 97 Oximetry 03/18/20 03/18/20 03/18/20 06:02 06:07 06:12 Temperature Pulse Rate 80 81 81 Respiratory Rate Blood Pressure O2 Sat by Pulse 97 96 97 Oximetry 03/18/20 03/18/20 03/18/20 06:17 06:22 06:27 Temperature Pulse Rate 82 82 85 Respiratory Rate Blood Pressure 112/58 O2 Sat by Pulse 97 97 96 Oximetry 03/18/20 03/18/20 03/18/20 06:32 06:37 06:42 Temperature Pulse Rate 91 H 81 80 Respiratory Rate Blood Pressure O2 Sat by Pulse 98 96 96 Oximetry 03/18/20 03/18/20 03/18/20 06:47 06:52 06:57 Temperature Pulse Rate 81 81 81 Respiratory Rate Blood Pressure O2 Sat by Pulse 96 97 97 Oximetry 03/18/20 03/18/20 03/18/20 07:02 07:07 07:12 Temperature Pulse Rate 78 80 79 Respiratory Rate Blood Pressure O2 Sat by Pulse 97 96 96 Oximetry 03/18/20 03/18/20 03/18/20 07:16 07:17 07:22 Temperature Pulse Rate 77 80 88 Respiratory Rate Blood Pressure 128/71 O2 Sat by Pulse 97 97 Oximetry 03/18/20 03/18/20 03/18/20 07:27 07:32 07:37 Temperature Pulse Rate 81 82 79 Respiratory Rate Blood Pressure O2 Sat by Pulse 97 97 97 Oximetry 03/18/20 03/18/20 07:42 07:59 Temperature Pulse Rate 87 84 Respiratory Rate Blood Pressure O2 Sat by Pulse 97 99 Oximetry - Exam Breasts: normal Cardiovascular: Regular rate Lungs: Normal air movement Abdomen: Present: normal appearance, soft Vulva: both: normal Uterus: Present: normal, fundal height above umbilicus FHR: auscultation normal, category 1 Uterine Contraction Monitor Mode: External Cervical Dilatation: 1.5 Cervical Effacement Percentage: 70 station: -1 Uterine Contraction Pattern: Irregular Uterine Tone Measurement Phase: Contraction Uterine Contraction Intensity: Mild Extremities: normal - Labs Labs: Abnormal Labs 03/16/20 03/16/20 20:35 20:35 WBC 14.2 H Lactate Dehydrogenase 211 H Laboratory Results - last 24 hr 03/17/20 10:25 Coronavirus (PCR) Negative
[2020-03-18] MEDS: OXYTOCIN DRIP 30 UNITS/500 ML BAG IV SCH ×2 (09:47→15:13)
--- NOTE | 2020-03-18 13:30 | Progress Note ---
Assessment and Plan - Patient Problems (1) Gestational hypertension Onset Date: ~03/16/20 Current Visit: Yes Status: Acute Qualifiers: Trimester: third trimester Qualified Code(s): O13.3 - Gestational [-induced] hypertension without significant proteinuria, third trimester Plan to address problem: VSSAF (some 130's/80's, most normal) no s/s pre-e Continue monitor (2) IUGR (intrauterine growth restriction) affecting care of mother Onset Date: ~03/16/20 Current Visit: Yes Status: Acute Qualifiers: Fetus number: single or unspecified fetus Trimester: third trimester Qualified Code(s): O36.5930 - Maternal care for other known or suspected poor growth, third trimester, not applicable or unspecified Plan to address problem: Cont efm (3) with 38 completed weeks gestation Onset Date: ~03/15/20 Current Visit: Yes Status: Acute Subjective - Subjective Date of service: 03/18/20 Principal diagnosis: IUP@ 38w3d IUGR GHTN IOL Patient reports: movement normal, no new complaints, no loss of fluid, no vaginal bleeding Objective - Vital Signs Vital Signs: Vital Signs - 12hr 03/18/20 03/18/20 03/18/20 01:32 01:37 01:42 Temperature Pulse Rate 75 77 79 Respiratory Rate Blood Pressure O2 Sat by Pulse 98 97 97 Oximetry 03/18/20 03/18/20 03/18/20 01:47 01:52 01:57 Temperature Pulse Rate 77 76 80 Respiratory Rate Blood Pressure O2 Sat by Pulse 98 97 99 Oximetry 03/18/20 03/18/20 03/18/20 02:02 02:07 02:12 Temperature Pulse Rate 74 76 81 Respiratory Rate Blood Pressure O2 Sat by Pulse 97 97 96 Oximetry 03/18/20 03/18/20 03/18/20 02:15 02:17 02:22 Temperature Pulse Rate 77 80 82 Respiratory Rate Blood Pressure 118/75 O2 Sat by Pulse 95 96 Oximetry 03/18/20 03/18/20 03/18/20 02:27 02:32 02:37 Temperature Pulse Rate 78 81 77 Respiratory Rate Blood Pressure O2 Sat by Pulse 95 95 95 Oximetry 03/18/20 03/18/20 03/18/20 02:42 02:47 02:52 Temperature Pulse Rate 79 77 77 Respiratory Rate Blood Pressure O2 Sat by Pulse 95 95 96 Oximetry 03/18/20 03/18/20 03/18/20 02:57 03:02 03:07 Temperature Pulse Rate 81 78 75 Respiratory Rate Blood Pressure O2 Sat by Pulse 96 96 96 Oximetry 03/18/20 03/18/20 03/18/20 03:12 03:15 03:17 Temperature Pulse Rate 78 78 84 Respiratory Rate Blood Pressure 114/66 O2 Sat by Pulse 95 96 Oximetry 03/18/20 03/18/20 03/18/20 03:22 03:27 03:32 Temperature Pulse Rate 82 84 84 Respiratory Rate Blood Pressure O2 Sat by Pulse 95 95 97 Oximetry 03/18/20 03/18/20 03/18/20 03:37 03:42 03:47 Temperature Pulse Rate 84 89 84 Respiratory Rate Blood Pressure O2 Sat by Pulse 96 97 96 Oximetry 03/18/20 03/18/20 03/18/20 03:52 03:57 04:02 Temperature Pulse Rate 85 82 82 Respiratory Rate Blood Pressure O2 Sat by Pulse 96 96 96 Oximetry 03/18/20 03/18/20 03/18/20 04:12 04:15 04:17 Temperature Pulse Rate 83 75 84 Respiratory Rate Blood Pressure 129/73 O2 Sat by Pulse 100 98 Oximetry 03/18/20 03/18/20 03/18/20 04:22 04:27 04:32 Temperature Pulse Rate 78 79 88 Respiratory Rate Blood Pressure O2 Sat by Pulse 98 98 98 Oximetry 03/18/20 03/18/20 03/18/20 04:37 04:42 04:47 Temperature Pulse Rate 79 81 87 Respiratory Rate Blood Pressure O2 Sat by Pulse 99 99 97 Oximetry 03/18/20 03/18/20 03/18/20 04:50 04:52 04:57 Temperature 98.3 F Pulse Rate 78 80 Respiratory 18 Rate Blood Pressure O2 Sat by Pulse 96 97 Oximetry 03/18/20 03/18/20 03/18/20 05:02 05:07 05:12 Temperature Pulse Rate 97 H 88 87 Respiratory Rate Blood Pressure O2 Sat by Pulse 98 97 97 Oximetry 03/18/20 03/18/20 03/18/20 05:15 05:17 05:22 Temperature Pulse Rate 72 81 73 Respiratory Rate Blood Pressure 116/61 O2 Sat by Pulse 95 96 Oximetry 03/18/20 03/18/2020 05:27 05:32 05:37 Temperature Pulse Rate 80 84 74 Respiratory Rate Blood Pressure O2 Sat by Pulse 96 96 97 Oximetry 03/18/20 03/18/20 03/18/20 05:42 05:47 05:52 Temperature Pulse Rate 75 79 78 Respiratory Rate Blood Pressure O2 Sat by Pulse 97 97 96 Oximetry 03/18/20 03/18/20 03/18/20 05:57 06:02 06:07 Temperature Pulse Rate 76 80 81 Respiratory Rate Blood Pressure O2 Sat by Pulse 97 97 96 Oximetry 03/18/20 03/18/20 03/18/20 06:12 06:17 06:22 Temperature Pulse Rate 81 82 82 Respiratory Rate Blood Pressure 112/58 O2 Sat by Pulse 97 97 97 Oximetry 03/18/20 03/18/20 03/18/20 06:27 06:32 06:37 Temperature Pulse Rate 85 91 H 81 Respiratory Rate Blood Pressure O2 Sat by Pulse 96 98 96 Oximetry 03/18/20 03/18/20 03/18/20 06:42 06:47 06:52 Temperature Pulse Rate 80 81 81 Respiratory Rate Blood Pressure O2 Sat by Pulse 96 96 97 Oximetry 03/18/20 03/18/20 03/18/20 06:57 07:02 07:07 Temperature Pulse Rate 81 78 80 Respiratory Rate Blood Pressure O2 Sat by Pulse 97 97 96 Oximetry 03/18/20 03/18/20 03/18/20 07:12 07:16 07:17 Temperature Pulse Rate 79 77 80 Respiratory Rate Blood Pressure 128/71 O2 Sat by Pulse 96 97 Oximetry 03/18/20 03/18/20 03/18/20 07:22 07:27 07:32 Temperature Pulse Rate 88 81 82 Respiratory Rate Blood Pressure O2 Sat by Pulse 97 97 97 Oximetry 03/18/20 03/18/20 03/18/20 07:37 07:42 07:59 Temperature Pulse Rate 79 87 84 Respiratory Rate Blood Pressure O2 Sat by Pulse 97 97 99 Oximetry 03/18/20 03/18/20 03/18/20 08:04 08:09 08:14 Temperature Pulse Rate 86 91 H 94 H Respiratory Rate Blood Pressure O2 Sat by Pulse 98 98 98 Oximetry 03/18/20 03/18/20 03/18/20 08:16 08:19 08:24 Temperature Pulse Rate 83 85 80 Respiratory Rate Blood Pressure 131/86 O2 Sat by Pulse 99 99 Oximetry 03/18/20 03/18/20 03/18/20 08:29 08:34 08:39 Temperature Pulse Rate 87 90 70 Respiratory Rate Blood Pressure O2 Sat by Pulse 99 99 98 Oximetry 03/18/20 03/18/20 03/18/20 08:40 08:44 09:28 Temperature 98.1 F Pulse Rate 18 L 77 85 Respiratory Rate Blood Pressure 130/60 O2 Sat by Pulse 99 Oximetry 03/18/20 03/18/20 03/18/20 09:43 09:57 10:02 Temperature Pulse Rate 84 82 85 Respiratory Rate Blood Pressure 130/62 O2 Sat by Pulse 97 96 Oximetry 03/18/20 03/18/20 03/18/20 10:07 10:12 10:13 Temperature Pulse Rate 89 87 80 Respiratory Rate Blood Pressure 120/66 O2 Sat by Pulse 95 97 Oximetry 03/18/20 03/18/20 03/18/20 10:17 10:19 10:22 Temperature Pulse Rate 86 82 81 Respiratory Rate Blood Pressure O2 Sat by Pulse 98 94 94 Oximetry 03/18/20 03/18/20 03/18/20 10:27 10:32 10:37 Temperature Pulse Rate 82 81 84 Respiratory Rate Blood Pressure O2 Sat by Pulse 94 94 93 Oximetry 03/18/20 03/18/20 03/18/20 10:42 10:44 10:47 Temperature Pulse Rate 83 81 81 Respiratory Rate Blood Pressure 120/69 O2 Sat by Pulse 93 93 Oximetry 03/18/20 03/18/20 03/18/20 10:52 10:56 10:57 Temperature Pulse Rate 82 80 79 Respiratory Rate Blood Pressure O2 Sat by Pulse 93 94 94 Oximetry 03/18/20 03/18/20 03/18/20 11:02 11:07 11:12 Temperature Pulse Rate 85 78 86 Respiratory Rate Blood Pressure O2 Sat by Pulse 93 94 96 Oximetry 03/18/20 03/18/20 03/18/20 11:13 11:17 11:22 Temperature Pulse Rate 81 84 85 Respiratory Rate Blood Pressure 119/66 O2 Sat by Pulse 96 95 Oximetry 03/18/20 03/18/20 03/18/20 11:23 11:27 11:29 Temperature Pulse Rate 84 86 91 H Respiratory Rate Blood Pressure O2 Sat by Pulse 94 95 94 Oximetry 03/18/20 03/18/20 03/18/20 11:32 11:34 11:37 Temperature Pulse Rate 87 89 94 H Respiratory Rate Blood Pressure O2 Sat by Pulse 94 94 94 Oximetry 03/18/20 03/18/20 03/18/20 11:39 11:42 11:43 Temperature Pulse Rate 96 H 90 90 Respiratory Rate Blood Pressure 114/68 O2 Sat by Pulse 94 97 Oximetry 03/18/20 03/18/20 03/18/20 11:51 11:56 12:01 Temperature Pulse Rate 92 H 84 67 Respiratory Rate Blood Pressure O2 Sat by Pulse 97 98 85 Oximetry 03/18/20 03/18/20 03/18/20 12:09 12:13 12:14 Temperature Pulse Rate 70 76 79 Respiratory Rate Blood Pressure 121/74 O2 Sat by Pulse 81 L 99 Oximetry 03/18/20 03/18/20 03/18/20 12:19 12:24 12:29 Temperature Pulse Rate 91 H 77 80 Respiratory Rate Blood Pressure O2 Sat by Pulse 99 99 98 Oximetry 03/18/20 03/18/20 03/18/20 12:34 12:39 12:43 Temperature Pulse Rate 81 82 77 Respiratory Rate Blood Pressure 133/84 O2 Sat by Pulse 99 99 Oximetry 03/18/20 03/18/20 03/18/20 12:44 12:49 12:54 Temperature Pulse Rate 78 85 78 Respiratory Rate Blood Pressure O2 Sat by Pulse 99 100 98 Oximetry 03/18/20 03/18/20 03/18/20 12:59 13:04 13:09 Temperature Pulse Rate 97 H 83 91 H Respiratory Rate Blood Pressure O2 Sat by Pulse 100 99 100 Oximetry 03/18/20 03/18/20 03/18/20 13:13 13:14 13:19 Temperature Pulse Rate 77 90 76 Respiratory Rate Blood Pressure 137/85 O2 Sat by Pulse 99 100 Oximetry 03/18/20 13:24 Temperature Pulse Rate 80 Respiratory Rate Blood Pressure O2 Sat by Pulse 100 Oximetry - Exam Breasts: normal Cardiovascular: Regular rate Lungs: Clear to auscultation, Normal air movement Abdomen: Present: normal appearance, soft Vulva: both: normal Uterus: Present: normal, firm FHR: category 1 Uterine Contraction Monitor Mode: Internal Cervical Dilatation: 1.5 (AROM - clear) Cervical Effacement Percentage: 70 station: -1 Uterine Contraction Pattern: Regular Uterine Tone Measurement Phase: Contraction Uterine Contraction Intensity: Moderate Extremities: normal Deep Tendon Reflex Grade: Normal +2 - Labs Labs: Abnormal Labs 03/16/20 03/16/20 20:35 20:35 WBC 14.2 H Lactate Dehydrogenase 211 H Laboratory Results - last 24 hr 03/17/20 10:25 Coronavirus (PCR) Negative
[2020-03-18] MEDS ORDERED: NALOXONE 2 MG/2 ML INJ IV PRN (13:58)
[2020-03-18] MEDS ORDERED: ePHEDrine SULFATE 50 MG/1 ML INJ IV PRN (13:58)
--- NOTE | 2020-03-18 14:04 | Anesthesia Consultation ---
Anesthesia Consult and Med Hx Date of service: 03/18/20 - Airway Anesthetic Teeth Evaluation: Good ROM Head & Neck: Adequate Mental/Hyoid Distance: Adequate Mallampati Class: Class II Intubation Access Assessment: Probably Good - Pulmonary Exam CTA: Yes - Cardiac Exam Cardiac Exam: RRR - Pre-Operative Health Status ASA Pre-Surgery Classification: ASA2 Proposed Anesthetic Plan: Epidural - Pre-Anesthesia Comment Pre-Anesthesia Comments: Intestinal blockage repaired with temporary iIeostomy bag placed at 3 days old EAB x 1 -no anesthesia complications - Pulmonary Hx Asthma: Yes (last episode 2013-used inhaler) Hx Respiratory Symptoms: No SOB: No COPD: No Home Oxygen Therapy: No Hx Pneumonia: No Hx Sleep Apnea: No - Cardiovascular System Hx Hypertension: Yes (last 2 visits) Hx Coronary Artery Disease: No Hx Heart Attack/AMI: No Hx Angina: No Hx Percutaneous Transluminal Coronary Angioplasty (PTCA): No Hx Cardia Arrhythmia: No Hx Pacemaker: No Hx Internal Defibrillator: No Hx Valvular Heart Disease: No Hx Heart Murmur: No Hx Peripheral Vascular Disease: No - Central Nervous System Hx Neuromuscular Disorder: No Hx Seizures: No CVA: No Hx Back Pain: No Hx Psychiatric Problems: No - Gastrointestinal Hx Ulcer: No Hx Gastroesophageal Reflux Disease: No - Endocrine Hx Renal Disease: No Hx End Stage Renal Disease: No Hx Cirrhosis: No Hx Liver Disease: No Hx Insulin Dependent Diabetes: No Hx Non-Insulin Dependent Diabetes: No Hx Hypothyroidism: No Hx Hyperthyroidism: No - Hematic Hx Anemia: Yes Hx Sickle Cell Disease: No - Other Systems Hx Alcohol Use: Yes (occas social) Hx Substance Use: No Hx Cancer: No Hx Obesity: No
[2020-03-18] MEDS ORDERED: DEXMEDETOMIDINE 200 MCG/2 ML VIAL IV ONE (14:08)
[2020-03-18] MEDS ORDERED: fentaNYL-BUPIV 2 MCG/ML-0.125% 200 MCG/100 ML BAG EPIDURAL SCH (15:00)
--- NOTE | 2020-03-18 16:08 | Progress Note ---
Labor Epidural - Labor Epidural Start Time: 14:15 Stop Time: 14:39 Performed by:: MAGGIE GENAO Procedure: Patient is requesting a laboring epidural for laboring pain. Patient IDed, H&P reviewed, all questions and concerns were answered, and consent was signed. Timeout was performed at bedside. Patient in sitting position. Sterile prep and drape was performed. [3] ml of 1% lidocaine skin wheal at L[3]- L [4] and L4-L5. 18-gauge Tuohy epidural needle was advanced to loss of resistance with air technique at 7cm. Two attempts. Negative CSF negative blood. Epidural catheter advanced to [12] centimeters. [NEGATIVE] Aspiration [NEGATIVE] test dose. Sterile dressing applied. Patient tolerated procedure. Performed by SRNA
[2020-03-18] MEDS ORDERED: BUPIVACAINE/PF (0.25%) 2.5 MG/ML 10 ML VIAL INFILTRATI ONE (16:38)
--- NOTE | 2020-03-18 18:07 | Procedure Note ---
OB Delivery Note - Delivery Date of Delivery: 03/18/20 [employer]: KIANA NUR (Elodia CARTER) Estimated blood loss: 200cc - Vaginal Delivery presentation: vertex Delivery position: OA (JASON) Intrapartum events: none Delivery induction: cervidil Delivery augmentation: rupture of membranes, pitocin Delivery monitor: external FHT, internal uterine Route of delivery: Delivery placenta: spontaneous Delivery cord: 3 umbilical vessels Episiotomy: none Delivery laceration: none Anesthesia: epidural Delivery comments: , viable female 5#10oz delivered over intact perineum, placed skin to skin with mother, baby crying and vigorous, 3 vessel cord clamped and cut after cessation of pulsation, placenta delivered spontaneously, EBL 200mL, all counts correct, father supportive at bedside, Apgars 8, 9; mother and LDR stable - Infant A at 1 minute: 8 at 5 minutes: 9 Infant Gender: Female (5lbs 10 oz)
[2020-03-19] MEDS ORDERED: MAGNESIUM HYDROXIDE (MOM) ORAL LIQD UDC PO PRN (00:59)
[2020-03-19] MEDS ORDERED: PROMETHAZINE 25 MG RECT SUPP PR PRN (00:59)
[2020-03-19] MEDS ORDERED: WITCH HAZEL/ GLYCERIN PAD TP PRN (00:59)
[2020-03-19] MEDS ORDERED: PROMETHAZINE 25 MG TAB PO PRN (00:59)
[2020-03-19] MEDS ORDERED: diphenhydrAMINE 25 MG CAP PO PRN (00:59)
[2020-03-19] MEDS ORDERED: OXYTOCIN DRIP 30 UNITS/500 ML BAG IV SCH (00:59)
[2020-03-19] MEDS ORDERED: LANOLIN/ZINC/DIMETHICONE (LANSINOH) 7 GM TP PRN (00:59)
[2020-03-19] MEDS ORDERED: ONDANSETRON 4 MG/2 ML INJ IV PRN (00:59)
[2020-03-19] MEDS ORDERED: BENZOCAINE/MENTHOL 20/0.5% TOP SPRAY 56 GM TP PRN (00:59)
--- NOTE | 2020-03-19 05:34 | Post Anesthesia Evaluation ---
- Post Anesthesia Evaluation Patient Participated: Yes Airway Patent: Yes Stable Respiratory Function: Yes Nausea/Vomiting: No Temp > 96.8F: Yes Pain Manageable: Yes Adequeate Hydration: Yes Anesthesia Complications: No Block Receding Appropriately: Yes Patient on Ventilator: No
[2020-03-19] MEDS: IBUPROFEN 800 MG TAB PO SCH ×2 (06:12→12:30)
[2020-03-19 06:14] LABS: Hematocrit 29.2 % (30.3-42.9); Hemoglobin 9.7 gm/dl (10.1-14.3)
--- NOTE | 2020-03-19 08:03 | Discharge Summary ---
Providers - Providers Date of Admission: 03/16/20 17:03 Date of discharge: 03/19/20 (Pt agrees to discharge home. ) Attending physician: SABAS CHU 03/19/20 07:21 Consult to Valve Inspector [CONS] Routine Reason For Exam: Primary care physician: SABAS CHU Hospitalization Reason for admission: induction of labor (gestational HTN) Delivery: Episiotomy: none Laceration: none Other procedures: none complications: none Discharge diagnosis: IUP at term delivered baby: female Pertinent studies: Pt denies GOVEA, blurred vision, spots before her eyes, chest pain, shortness of breath and upper abdominal pain. Pt also states ambulating and voiding without difficulty. Hospital course: S: Pt states that she is doing well. Ambulating, voiding, and passing flatus without difficulty. BC: Pills, or IUD. O: VSS. I&O's adequate. BP ranges 110's-130's/50's-70's. H/H 9.7/29.2. A: 24 y.o. s/p @ term d/t gHTN, now stable . Stable for discharge home. P: Discharge home with instructions. Pt to make a BP check in the office in 1 week. Pt to make a visit in the office in 4 weeks. Condition at discharge: Good Disposition: DC-01 TO HOME OR SELFCARE - Discharge Diagnoses (1) IUGR (intrauterine growth restriction) affecting care of mother Status: Resolved Qualifiers: Fetus number: single or unspecified fetus Trimester: third trimester Qualified Code(s): O36.5930 - Maternal care for other known or suspected poor growth, third trimester, not applicable or unspecified (2) Gestational hypertension Status: Resolved Qualifiers: Trimester: third trimester Qualified Code(s): O13.3 - Gestational [-induced] hypertension without significant proteinuria, third trimester (3) with 38 completed weeks gestation Status: Resolved Plan - Provider Discharge Summary Activity: routine, no sex for 6 weeks, no heavy lifting 4 weeks, no strenuous exercise Diet: routine Instructions: routine Additional instructions: [] Smoking cessation referral if applicable(refer to patient education folder for contact #) [] Refer to [facility] Booklet Call your doctor immediately for: * Fever > 100.5 * Heavy vaginal bleeding ( >1 pad per hour) * Severe persistent headache * Shortness of breath * Reddened, hot, painful area to leg or breast * Drainage or odor from incision. * Keep incision clean and dry at all times and follow doctor's instructions regarding bathing/showering - Follow up plan Follow up: SABAS CHU MD [Primary Care Provider] - 7 Days (Congratulations!! Please schedule a blood pressure check in the office in 1 week. Please schedule a visit in the office in 4 wks. If you have any questions or concerns after discharge, please do not hesitate to call the office @ [phone]. )
[2020-03-19] MEDS ORDERED: PRENATAL VIT27-FE FUMARATE-FOLIC ACID VIT TAB PO SCH (10:00)
[2020-03-20] MEDS: IBUPROFEN 800 MG TAB PO SCH (01:10)
[2020-03-20] MEDS ORDERED: DIPHtheria,PERTUSSIS(ACELL),TETANUS VACCINE/PF 0.5 ML VIAL IM ONE (06:00)
[2020-03-20 15:51] VITALS: BP 143/82
== END 2020-03-20 16:07 | disposition home or self-care (01) | DRG 807 ==
LOC: LD 17:03 → OB 03-18 23:37
PROVIDERS: ADMIT Obstetrics & Gynecology; ATTEND Obstetrics & Gynecology
PROC: 3E0P7VZ Introduction of Hormone into Female Reproductive, Via Natural or Artificial Opening (ICD-10-PCS; principal; 2020-03-17)
PROC: 3E033VJ Introduction of Other Hormone into Peripheral Vein, Percutaneous Approach (ICD-10-PCS; 2020-03-17)
PROC: 10E0XZZ Delivery of Products of Conception, External Approach (ICD-10-PCS; 2020-03-18)
PROC: 3E0R3BZ Introduction of Anesthetic Agent into Spinal Canal, Percutaneous Approach (ICD-10-PCS; 2020-03-18)
PROC: 00HU33Z Insertion of Infusion Device into Spinal Canal, Percutaneous Approach (ICD-10-PCS; 2020-03-18)
PROC: 3E0234Z Introduction of Serum, Toxoid and Vaccine into Muscle, Percutaneous Approach (ICD-10-PCS; 2020-03-20)
PROC: 3E0134Z Introduction of Serum, Toxoid and Vaccine into Subcutaneous Tissue, Percutaneous Approach (ICD-10-PCS; 2020-03-20)
DX: O13.4 Gestational [pregnancy-induced] hypertension without significant proteinuria, complicating childbirth (principal); Z37.0 Single live birth; O36.5930 Maternal care for other known or suspected poor fetal growth, third trimester, not applicable or unspecified; Z3A.38 38 weeks gestation of pregnancy; Z20.828 Contact with and (suspected) exposure to other viral communicable diseases
CPT/HCPCS: 36415; 59200; 81001; 82565; 83615; 84450; 84460; 84550; 85014; 85018; 85027; 86592; 86850; 86900; 86901; 88307; G0378; A6250; J2590; J3010; J3490; J7120; U0003-CS